=== PATIENT | male | born 1980 | race African-American/Black ===

== ENCOUNTER 2016-12-17 17:18 | Emergency (ER) | payer OTHER ==
[~2016-12-17] VITALS: Ht 182.9 cm; Wt 261.0 kg
[2016-12-17] MEDS ORDERED: DULO30CA PO (17:32)
[2016-12-17] MEDS ORDERED: GABA-283 PO (17:32)
[2016-12-17] MEDS ORDERED: FLON1SPR (20:32)
[2016-12-17] MEDS ORDERED: IBUP-1022 PO (20:32)
[2016-12-17] MEDS ORDERED: ZITHTAB PO (20:32)
[2016-12-17] MEDS ORDERED: PROAAER10 INH (20:36)
[2016-12-17 20:42] VITALS: BP 139/84
--- NOTE | 2016-12-18 08:31 | REP ---
Chest x-ray: Two views. History: Left lower chest pain. Cough. . Comparison study: No comparisons . Findings: The lungs are well inflated and free of infiltrate. The pleural angles are sharp. The heart size is normal. Pulmonary vasculature is not increased. No significant bony abnormality is seen. Impression: Negative chest x-ray. Signed by Nick Wren MD 12/18/2016 08:22 A
== END 2016-12-17 20:46 | disposition home or self-care (01) ==
LOC: M ED 17:18
DX: J21.9 Acute bronchiolitis, unspecified (principal); R05 Cough; M94.0 Chondrocostal junction syndrome [Tietze]; Z79.899 Other long term (current) drug therapy

== ENCOUNTER 2017-07-26 13:04 | Emergency (ER) | payer OTHER ==
[2017-07-26 16:01] LABS: CHLAMYDIA DNA AMPLIFICATION NEGATIVE (NEGATIVE); GC DNA AMPLIFICATION POSITIVE (NEGATIVE)
[2017-07-26] MEDS: AZITHROMYCIN 250 MG TAB PO (16:57)
[2017-07-26] MEDS: cefTRIAXone SOD 250 MG VIAL (J0696) IM (16:57)
[2017-07-26 19:04] LABS: BASO % 0.3 % (0.0-1.0); EOS # 0.1 10^3/uL (0.0-0.50); EOS % 1.6 % (0.0-3.0); HEMATOCRIT 46.1 % (42.0-52.0); HEMOGLOBIN 15.2 g/dl (13.5-17.5); IMMATURE GRANULOCYTE % 0.7 % (0-3.0); LYMPH # 2.3 10^3/uL (1.5-4.5); LYMPH % 32.6 % (24.0-44.0); MEAN CORPUSCULAR HEMOGLOBIN 28.8 pg (27.0-33.0); MEAN CORPUSCULAR VOLUME 87.3 fl (80.0-96.0); MONO # 0.6 10^3/uL (0.0-0.8); MONO % 8.3 % (0.0-5.0); NEUTROPHILS % 56.5 % (36.0-66.0); PLATELET COUNT, AUTOMATED 207 10^3/uL (150-450); RED BLOOD COUNT 5.28 10^6/uL (4.30-6.10); RED CELL DISTRIBUTION WIDTH 12.6 % (11.5-14.5); WHITE BLOOD COUNT 7.1 10^3/uL (4.0-10.0)
[2017-07-26 19:23] LABS: ANION GAP 6 MEQ/L (8-16); BLOOD UREA NITROGEN 13 MG/DL (7-18); CARBON DIOXIDE LEVEL 28 MEQ/L (21-32); CHLORIDE LEVEL 108 MEQ/L (98-107); CK-MB VALUE MASS 2.7 NG/ML (<3.6); CPK CREATINE PHOSPHOKINASE 300 U/L (39-308); CREATININE FOR GFR 1.18 MG/DL (0.70-1.30); GLOMERULAR FILTRATION RATE > 60.0 (>60); GLUCOSE, FASTING 90 MG/DL (70-100); SODIUM LEVEL 142 MEQ/L (136-145); TROPONIN I < 0.02 NG/ML (< 0.10)
== END 2017-07-26 19:55 | disposition home or self-care (01) ==
LOC: M ED 13:04
DX: Z20.2 Contact with and (suspected) exposure to infections with a predominantly sexual mode of transmission (principal); R36.9 Urethral discharge, unspecified; Z79.899 Other long term (current) drug therapy
CPT/HCPCS: J0696

== ENCOUNTER → 2019-12-07 | Outpatient (CLI) | payer OTHER ==
[~2019-12-07] MED LIST: CAPS0.1C2 EX; CYCL-707 PO; D31000TA2 PO; DULO30CA9 PO; FAMO1TAB11 PO; FLON1SPR; GABA-845 PO; IBUP-1022 PO; MULTCAP PO; OMEP-218 PO; PROAAER10 INH; ROSU40TA4 PO; TRAM50TA2 PO; ZITHTAB PO; ZOLO25TA PO; ZOLP10TA2 PO
== END ==
LOC: M LABSMTC 10:37
PROVIDERS: ATTEND Anesthesiology
DX: Z01.812 Encounter for preprocedural laboratory examination (principal); Z20.828 Contact with and (suspected) exposure to other viral communicable diseases
CPT/HCPCS: C9803; U0003

== ENCOUNTER 2019-12-12 08:04 | Day surgery (SDC) | payer OTHER ==
[~2019-12-12] VITALS: Ht 182.9 cm; Wt 116.6 kg
[~2019-12-12 08:04] MED LIST changes: +LIDOCAINE 2% 100MG/5ML SDV (FOR ANES.) As Ordered ONE; -MULTCAP PO; +NS 1,000 ML IV ONE; +propofoL 200 MG/20 ML VIAL As Ordered ONE
[2019-12-12] MEDS ORDERED: MULTCAP PO (08:29)
[2019-12-12] MEDS ORDERED: propofoL 200 MG/20 ML VIAL As Ordered ONE (09:16)
--- NOTE | 2019-12-12 09:31 | ROOR ---
Patient Name: Richmond Garcia Procedure Date: 12/12/2019 8:58 AM Date of : 1980 Age: 39 Room: [facility] Gender: Male Note Status: Finalized Procedure: Colonoscopy Indications: Anal bleeding, Rectal bleeding Providers: Alfred Kruger MD Referring MD: [facility], Admin. Requesting Provider: Medicines: Monitored Anesthesia Care Complications: No immediate complications. Procedure: Pre-Anesthesia Assessment: - Prior to the procedure, a History and Physical was performed, and patient medications and allergies were reviewed. The patient is competent. The risks and benefits of the procedure and the sedation options and risks were discussed with the patient. All questions were answered and informed consent was obtained. Patient identification and proposed procedure were verified by the physician, the nurse and the anesthesiologist in the endoscopy suite. Mental Status Examination: alert and oriented. Airway Examination: normal oropharyngeal airway and neck mobility. Respiratory Examination: clear to auscultation. CV Examination: normal. Prophylactic Antibiotics: The patient does not require prophylactic antibiotics. Prior Anticoagulants: The patient has taken no previous anticoagulant or antiplatelet agents. ASA Grade Assessment: II - A patient with mild systemic disease. After reviewing the risks and benefits, the patient was deemed in satisfactory condition to undergo the procedure. The anesthesia plan was to use monitored anesthesia care (MAC). Immediately prior to administration of medications, the patient was re-assessed for adequacy to receive sedatives. The heart rate, respiratory rate, oxygen saturations, blood pressure, adequacy of pulmonary ventilation, and response to care were monitored throughout the procedure. The physical status of the patient was re-assessed after the procedure. The Colonoscope was introduced through the anus and advanced to the cecum, identified by appendiceal orifice and ileocecal valve. The colonoscopy was performed without difficulty. The patient tolerated the procedure well. The quality of the bowel preparation was good. Findings: The perianal and digital rectal examinations were normal. A diminutive polyp was found in the sigmoid colon. The polyp was flat. The polyp was removed with a cold biopsy forceps. Resection and retrieval were complete. Estimated blood loss was minimal. The retroflexed view of the distal rectum and anal verge was normal and showed no anal or rectal abnormalities. Impression: - One diminutive polyp in the sigmoid colon, removed with a cold biopsy forceps. Resected and retrieved. - The distal rectum and anal verge are normal on retroflexion view. Recommendation: - Discharge patient to home (ambulatory). - Repeat colonoscopy in 10 years for screening purposes. - Telephone my office for pathology results in 1 week. Alfred Kruger MD Alfred Kruger MD 12/12/2019 9:29:52 AM Electronically signed by Alfred Kruger MD Number of Addenda: 0 Note Initiated On: 12/12/2019 8:58 AM Estimated Blood Loss: Estimated blood loss was minimal.
[2019-12-12 09:53] VITALS: BP 105/59
== END 2019-12-12 09:57 | disposition home or self-care (01) ==
LOC: M OPP 08:04
PROVIDERS: ATTEND Surgery
DX: D12.5 Benign neoplasm of sigmoid colon (principal); K62.5 Hemorrhage of anus and rectum; E73.8 Other lactose intolerance; Z79.899 Other long term (current) drug therapy; Z79.891 Long term (current) use of opiate analgesic; Z87.891 Personal history of nicotine dependence

== ENCOUNTER → 2020-03-18 | Outpatient (CLI) | payer OTHER ==
[~2020-03-18] MED LIST changes: -LIDOCAINE 2% 100MG/5ML SDV (FOR ANES.) As Ordered ONE; +MULTCAP PO; -NS 1,000 ML IV ONE; -propofoL 200 MG/20 ML VIAL As Ordered ONE
--- NOTE | 2020-03-18 20:21 | REP ---
INDICATION: LEFT UPPER QUADRANT ABDOMINAL TENDERNESS COMPARISON: None. TECHNIQUE: Frontal view of the chest with multiple views of the right and left hemithorax. FINDINGS: Frontal view of the chest demonstrates no acute cardiopulmonary process, contusion, effusion, or pneumothorax. Multiple views of the right and left hemithorax demonstrates no acute rib fracture/injury or pathology. IMPRESSION: Normal rib series. <Electronically signed by Rudy López > 03/18/20 2017
== END ==
LOC: M RAD 16:03
PROVIDERS: ATTEND Surgery
DX: R10.812 Left upper quadrant abdominal tenderness (principal)

== ENCOUNTER → 2020-03-28 | Outpatient (CLI) | payer OTHER ==
[~2020-03-28] MED LIST changes: +FAMO20TA PO; +VITMTA PO
== END ==
LOC: M LABSMTC 10:57
PROVIDERS: ATTEND Anesthesiology
DX: Z01.812 Encounter for preprocedural laboratory examination (principal); Z20.822 Contact with and (suspected) exposure to COVID-19

== ENCOUNTER → 2020-04-11 | Outpatient (CLI) | payer OTHER | LOC: M LABSMTC 10:58 | PROVIDERS: ATTEND Anesthesiology | DX: Z01.812 Encounter for preprocedural laboratory examination (principal); Z20.822 Contact with and (suspected) exposure to COVID-19 ==

== ENCOUNTER 2020-04-16 12:18 | Day surgery (SDC) | payer OTHER ==
[~2020-04-16] VITALS: Ht 182.9 cm; Wt 118.4 kg
[~2020-04-16 12:18] MED LIST changes: +NS 1,000 ML IV ONE
--- OUTSIDE RECORDS SUMMARY | 2020-04-16 12:22 | CCD ---
Author Author [facility] Address Unknown Phone Unavailable Care Team Providers Care Android Ios Developer Name Role Phone Whitley Baires Unavailable Unavailable Fowler, Whitley Castle Unavailable Unavailable Dequan, Whitley Tin Unavailable Unavailable Fowler, Whitley Tin Unavailable Unavailable Dequan, Whitley Tin Unavailable Unavailable Fowler, Whitley Tin Unavailable Unavailable Fowler, Whitley Tin Unavailable Unavailable Fowler, Whitley Tin Unavailable Unavailable Re-disclosure Warning The records that you are about to access may contain information from federally-assisted alcohol or drug abuse programs. If such information is present, then the following federally mandated warning applies: This information has been disclosed to you from records protected by federal confidentiality rules (42 CFR part 2). The federal rules prohibit you from making any further disclosure of this information unless further disclosure is expressly permitted by the written consent of the person to whom it pertains or as otherwise permitted by 42 CFR part 2. A general authorization for the release of medical or other information is NOT sufficient for this purpose. The Federal rules restrict any use of the information to criminally investigate or prosecute any alcohol or drug abuse patient.The records that you are about to access may contain highly sensitive health information, the redisclosure of which is protected by Article 27-F of the [facility] Public Health law. If you continue you may have access to information: Regarding HIV / AIDS; Provided by facilities licensed or operated by the [facility] Office of Mental Health; or Provided by the [facility] Office for People With Developmental Disabilities. If such information is present, then the following [facility] mandated warning applies: This information has been disclosed to you from confidential records which are protected by state law. State law prohibits you from making any further disclosure of this information without the specific written consent of the person to whom it pertains, or as otherwise permitted by law. Any unauthorized further disclosure in violation of state law may result in a fine or longterm sentence or both. A general authorization for the release of medical or other information is NOT sufficient authorization for further disc losure. Family History Family Member Name Family Member Gender Family Member Status Date o f Status Description Data Source(s) Unknown Female Problem [facility] ([facility] ) Encounters Encounter Providers Location Date Indications Data Source(s ) Office Visit Attender: Tin Jerome 12/28/2019 09:15:00 AM EDT [facility] Outpatient Attender: Tin Jerome 11/26/2019 10:00:00 AM EDT [facility]) Medications Medication Brand Name Start Date Product Form Dose Route Admi nistrative Instructions Pharmacy Instructions Status Indications Reaction Description Data Source(s) 4 mg 04/11/2020 12:00:00 AM EST tablets,dose pack 21 USE DIRECTED USE DIRECTED SOLD: 04/11/2020 [facility] 800 mg 03/31/2020 12:00:00 AM EST tablet 20 TAKE ONE TABLET BY MOUTH EVERY 8 HOURS NEEDED FOR PAIN TAKE ONE TABLET BY MOUTH EVERY 8 HOURS A S NEEDED FOR PAIN SOLD: 03/31/2020 [facility] 0.12 % 03/31/2020 12:00:00 AM EST mouthwash 473 DIP Q-TIP IN RINSE AND APPLY TO SURGICAL SITE TWO TIMES A DAY FOR 2 WEEKS DIP Q-TIP IN RINSE AND APPLY TO SURGICAL SITE TWO TIMES A DAY FOR 2 WEEKS SOLD: 03/31/2020 [facility] 875 mg 12/15/2019 12:00:00 AM EDT tablet 20 TAKE ONE TABLET BY MOUTH EVERY 12 HOURS FOR 10 DAYS TAKE ONE TABLET BY MOUTH EVERY 12 HOURS FOR 10 DAYS SO LD: 12/15/2019 [facility] 800 mg 12/15/2019 12:00:00 AM EDT tablet 21 TAKE ONE TABLET BY MOUTH THREE TIMES A DAY FOR 7 DAYS TAKE ONE TABLET BY MOUTH THREE TIMES A DAY FOR 7 DAYS SOLD: 12/15/2019 [facility] Insurance Providers Payer name Policy type / Coverage type Policy ID Covered constitution party ID Covered constitution party's relationship to be Policy Be Plan Information 'S ADMINISTRATION [id number] SP [id number] [id number] S [id number] [place] [employer] [id number] SP [id number] FOR LIFE [id number] SP [id number] ACTIVE DUTY [id number] SP [id number] [facility] AD O [id number] S [id number] N [employer]AL CLAIMS CHRISTINE -O/P [id number] 18 [id number] [facility] Federal Service Commercial Self Problems, Conditions, and Diagnoses Code Display Name Description Problem Type Effective Dates Data Source(s) [id number] Essential hypertension Essential hypertension Problem 11/26/2019 12:00:00 AM EDT [facility] ([facility], ) Surgeries/Procedures Procedure Description Date Indications Data Source(s) Colonoscopy Flexible Proximal To Splenic Flexure W/Biopsy Si ngle/ 12/12/2019 12:00:00 AM EDT [facility] ([facility], ) Results ID Date Data Source [id number] 04/11/2020 09:30:00 AM EST [facility] Name Value Range Interpretation Code Description Data Ramandeep rce(s) Supporting Document(s) SARS coronavirus 2 RNA Not Detected [facility] [place] This lab was ordered by [facility] and reported by [facility]. ID Date Data Source [id number] 03/28/2020 10:00:00 AM EST [facility] Name Value Range Interpretation Code Description Data Ramandeep rce(s) Supporting Document(s) SARS coronavirus 2 RNA Not Detected [facility] [place] This lab was ordered by [facility] and reported by [facility]. ID Date Data Source [id number] 12/12/2019 09:26:00 AM EDT [facility] ([facility]) Name Value Range Interpretation Code Description Data Ramandeep rce(s) Supporting Document(s) Surgical pathology study Laboratory test result [facility] ([facility]) FINAL DIAGNOSIS Sigmoid colon, polyp, polypectomy: Benign colonic mucosa. No adenomatous change is noted. 12/13/20191207 CLINICAL DIAGNOSIS Rectal bleed 12/12/20191413 GROSS DIAGNOSIS Received in formalin labeled "sigmoid polyp" is a 0.2 x 0.2 x 0.1 cm. portion of mucosa. All in one. - 12/12/20191413 Signed Amber Kim MD 12/13/2019 120 ID Date Data Source [id number] 12/07/2019 11:00:00 AM EDT [facility] Name Value Range Interpretation Code Description Data Ramandeep rce(s) Supporting Document(s) SARS coronavirus 2 RNA [facility] This lab was ordered by [facility] and reported by [facility]. Procedure Vital Signs ID Date Data Source UNK Name Value Range Interpretation Code Description Data Source(s) Body surface area Derived from formula 2.38 m2 2.38 m2 [facility] ([facility]) Body weight 117.936 kg 117.936 kg [facility] ([facility]) [place] body weight 178 [lb_av] 178 [lb_av] [facility] ([facility]) Body mass index (BMI) [Ratio] 35.3 kg/m2 35.3 k g/m2 [facility] ([facility]) Body weight 260.00 [lb_av] 260.00 [lb_av] [facility] ([facility]) Body height 72 [in_i] 72 [in_i] [facility] ([facility]) 6'0" Diastolic blood pressure 87 mm[Hg] 87 mm[Hg] [facility] ([facility]) Systolic blood pressure 134 mm[Hg] 134 mm[Hg] [facility] ([facility]) Body surface area Derived from formula 2.37 m2 2.37 m2 [facility] ([facility]) Body weight 116.745 kg 116.745 kg [facility] ([facility]) [place] body weight 178 [lb_av] 178 [lb_av] [facility] ([facility]) Body mass index (BMI) [Ratio] 34.9 kg/m2 34.9 k g/m2 [facility] ([facility]) Body weight 257.38 [lb_av] 257.38 [lb_av] [facility] ([facility]) Body height 72 [in_i] 72 [in_i] [facility] ([facility]) 6'0" Diastolic blood pressure 62 mm[Hg] 62 mm[Hg] [facility] ([facility]) Systolic blood pressure 120 mm[Hg] 120 mm[Hg] [facility] ([facility]) Body weight 117.029 kg 117.029 kg [facility] ([facility]) [place] body weight 178 [lb_av] 178 [lb_av] [facility] ([facility]) Body mass index (BMI) [Ratio] 35.0 kg/m2 35.0 k g/m2 [facility] ([facility]) Body weight 258.00 [lb_av] 258.00 [lb_av] [facility] ([facility]) Body height 72 [in_i] 72 [in_i] [facility] ([facility]) 6'0" Diastolic blood pressure 80 mm[Hg] 80 mm[Hg] [facility] ([facility]) Systolic blood pressure 122 mm[Hg] 122 mm[Hg] [facility] ([facility])
--- OUTSIDE RECORDS SUMMARY | 2020-04-16 12:22 | CCD | Continuity of Care Document ---
Author Author [facility] AD[facility], Richmond MAYO Organization Unknown Address [address] [address] Phone [phone] Care Team Providers Care Card Punching Machine Operator Name Role Phone Joon Lockhart M.D. AUTM [phone] [facility] AUTM [phone] Problems Active Problems Provider Date Essential hypertension Tin Baires NP Onset: 11/26/2019 Social History Type Date Description Comments Sex Unknown ETOH Use 2-3 A Week Tobacco Use Start: Unknown Denies Smoking state quit 020 Recreational Drug Use Denies Drug Use Allergies, Adverse Reactions, Alerts Description No Known Drug Allergies Medications Active Medications SIG Qnty Indications Ordering Provide r Date Duloxetine HCL 60mg Caps DR Part 90mg by mouth bid Unknown Tramadol HCL 100mg Tablets 1 by mouth bid Unknown Multi Vitamin Tablets 1 po d aily Unknown Immunizations Description No Information Available Vital Signs Date Vital Result Comment 03/18/2020 2:52pm BP Systolic 134 mmHg BP Diastolic 87 mmHg Height 72 inches 6'0" Weight 260.00 lb BMI (Body Mass Index) 35.3 kg/m2 [place] Body Weight 178 lb Weight 117.936 kg BSA (Body Surface Area) 2.38 m2 12/28/2019 9:34am BP Systolic 120 mmHg BP Diastolic 62 mmHg Height 72 inches 6'0" Weight 257.38 lb BMI (Body Mass Index) 34.9 kg/m2 [place] Body Weight 178 lb Weight 116.745 kg BSA (Body Surface Area) 2.37 m2 Results Test Acquired Date Facility Test Result H/L Range Note Laboratory test finding 12/12/2019 [facility] [address] [place] [address] [phone] Pathology Request For Service (SEE NOTE) 1 1 FINAL DIAGNOSIS Sigmoid colon, polyp, polypectomy: Benign colonic mucosa. No adenomatous change is noted. 12/13/20191207 CLINICAL DIAGNOSIS Rectal bleed 12/12/20191413 GROSS DIAGNOSIS Received in formalin labeled "sigmoid polyp" is a 0.2 x 0.2 x 0.1 cm. portion of mucosa. All in one. - 12/12/20191413 Signed Amber Kim MD 12/13/2019 120 Procedures Date Code Description Status 12/12/2019 94163 Colonoscopy Flexible Proximal To Splenic Flexure W/Biopsy Single/ Completed Medical Devices Description No Information Available Encounters Type Date Location Provider Dx Diagnosis Office Visit 12/28/2019 9:15a [facility] Tin lowe NP D12.6 Benign neoplasm of colon, unspecified Z48.89 Encounter for other specifie d surgical aftercare Office Visit 11/26/2019 10:00a [facility] Tin lowe NP K62.5 Hemorrhage of anus and rectum Assessments Date Code Description Provider 12/28/2019 D12.6 Benign neoplasm of colon, unspec ified Tin Baires NP 12/28/2019 Z48.89 Encounter for other specified boudreaux rgical aftercare Tin Baires NP 12/12/2019 K62.5 Hemorrhage of anus and rectum Ed olivia Kruger MD 11/26/2019 K62.5 Hemorrhage of anus and rectum dena Baires NP Plan of Treatment No Information Available Functional Status Description No Information Available Mental Status Description No Information Available Referrals Refer to Reason for Referral Status Appt Date Jeremy Pope D.O. EGD/SCOPE Scheduled 11/26/19 20 [address] [facility] [address] [place], [place] [address] [phone]
[2020-04-16] MEDS ORDERED: LIDOCAINE 2% 100MG/5ML SDV (FOR ANES.) As Ordered ONE (12:49)
[2020-04-16] MEDS ORDERED: propofoL 200 MG/20 ML VIAL As Ordered ONE (12:49)
[2020-04-16] MEDS ORDERED: fentaNYL 100 MCG/2 ML INJECTION (J3010) As Ordered ONE (12:50)
--- NOTE | 2020-04-16 15:00 | ROOR ---
Patient Name: Richmond Garcia Procedure Date: 04/16/2020 2:42 PM Date of : 1980 Age: 39 Room: [facility] Gender: Male Note Status: Finalized Procedure: Upper GI endoscopy Indications: Abdominal pain in the left upper quadrant Providers: Alfred Kruger MD Referring MD: [facility] Sailaja BROOKS [facility], Admin. Requesting Provider: Medicines: Monitored Anesthesia Care Complications: No immediate complications. Procedure: Pre-Anesthesia Assessment: - Prior to the procedure, a History and Physical was performed, and patient medications and allergies were reviewed. The patient is competent. The risks and benefits of the procedure and the sedation options and risks were discussed with the patient. All questions were answered and informed consent was obtained. Patient identification and proposed procedure were verified by the physician, the nurse and the supervisor ornamental ironworking in the endoscopy suite. Mental Status Examination: alert and oriented. Airway Examination: normal oropharyngeal airway and neck mobility. Respiratory Examination: clear to auscultation. CV Examination: normal. Prophylactic Antibiotics: The patient does not require prophylactic antibiotics. Prior Anticoagulants: The patient has taken no previous anticoagulant or antiplatelet agents. ASA Grade Assessment: II - A patient with mild systemic disease. After reviewing the risks and benefits, the patient was deemed in satisfactory condition to undergo the procedure. The anesthesia plan was to use monitored anesthesia care (MAC). Immediately prior to administration of medications, the patient was re-assessed for adequacy to receive sedatives. The heart rate, respiratory rate, oxygen saturations, blood pressure, adequacy of pulmonary ventilation, and response to care were monitored throughout the procedure. The physical status of the patient was re-assessed after the procedure. The Endoscope was introduced through the mouth, and advanced to the third part of duodenum. The upper GI endoscopy was technically difficult and complex due to the patient's discomfort during the procedure. Findings: The examined esophagus was normal. Localized mildly erythematous mucosa without bleeding was found at the incisura. Biopsies were taken with a cold forceps for Helicobacter pylori testing. Estimated blood loss was minimal. The first portion of the duodenum and second portion of the duodenum were normal. Impression: - Normal esophagus. - Erythematous mucosa in the incisura. Biopsied. - Normal first portion of the duodenum and second portion of the duodenum. Recommendation: - Discharge patient to home (ambulatory). - Use Protonix (pantoprazole) 40 mg PO daily for 6 weeks. Procedure Code(s): --- Professional --- 21024, Esophagogastroduodenoscopy, flexible, transoral; with biopsy, single or multiple Diagnosis Code(s): --- Professional --- K31.89, Other diseases of stomach and duodenum R10.12, Left upper quadrant pain CPT copyright 2019 [employer]. All rights reserved. The codes documented in this report are preliminary and upon impregnating helper review may be revised to meet current compliance requirements. Alfred Kruger MD Alfred Kruger MD 04/16/2020 3:00:05 PM Electronically signed by Alfred Kruger MD Number of Addenda: 0 Note Initiated On: 04/16/2020 2:42 PM Estimated Blood Loss: Estimated blood loss was minimal.
[2020-04-16 15:27] VITALS: BP 147/89
== END 2020-04-16 15:30 | disposition home or self-care (01) ==
LOC: M OPP 12:18
PROVIDERS: ATTEND Surgery
DX: R10.12 Left upper quadrant pain (principal); K29.50 Unspecified chronic gastritis without bleeding; K31.89 Other diseases of stomach and duodenum; E78.5 Hyperlipidemia, unspecified; R73.03 Prediabetes; R12 Heartburn; J45.909 Unspecified asthma, uncomplicated; G47.30 Sleep apnea, unspecified; Z91.011 Allergy to milk products; Z79.899 Other long term (current) drug therapy
CPT/HCPCS: 43239; 88305; J3010

== ENCOUNTER → 2020-10-09 | Outpatient (REF) | payer OTHER ==
[~2020-10-09] MED LIST changes: +GABA-283 PO; -GABA-845 PO; -NS 1,000 ML IV ONE
[2020-10-09 09:37] LABS: SEMEN APPEARANCE OPAQUE (OPAQUE)
[2020-10-09 09:38] LABS: SEMEN VISCOSITY LIQUID (LIQUID); SEMEN pH 8.5 (7.0-8.0); SPERM CONCENTRATION 74.1 M/ml (>=15.0); WBC CONCENTRATION <=1 M/ml (<=1 M/ml)
== END ==
LOC: M LAB REF 09:21
PROVIDERS: ATTEND Obstetrics & Gynecology
DX: N46.8 Other male infertility (principal)

== ENCOUNTER → 2020-11-07 | Outpatient (REF) | payer OTHER ==
[2020-11-07 10:30] LABS: SEMEN APPEARANCE OPAQUE (OPAQUE); SEMEN VISCOSITY VISCOUS (LIQUID); SEMEN VOLUME 1.4 ml (2.0-5.0); SPERM CONCENTRATION 36.4 M/ml (>=15.0); WBC CONCENTRATION >1 M/ml (<=1 M/ml)
== END ==
LOC: M LAB REF 10:09
PROVIDERS: ATTEND Obstetrics & Gynecology
DX: N46.8 Other male infertility (principal)

== ENCOUNTER 2021-08-04 08:11 | Emergency (ER) | payer OTHER ==
[~2021-08-04] VITALS: Ht 182.9 cm; Wt 126.9 kg
[~2021-08-04 08:11] MED LIST changes: -D31000TA2 PO; +OMEP-173 PO; -OMEP-218 PO; +VITA100093 PO
[2021-08-04] MEDS ORDERED: CYCL-707 PO (08:23)
[2021-08-04] MEDS ORDERED: KETOROLAC 30 MG/ML 1ML VIAL IM ONE (09:40)
[2021-08-04] MEDS ORDERED: LIDOCAINE 5% (LIDODERM) PATCH TD ONE (09:40)
[2021-08-04] MEDS ORDERED: methocarbamoL 500 MG TAB PO ONE (09:40)
[2021-08-04] MEDS ORDERED: METH-1164 PO (11:01)
[2021-08-04 11:11] VITALS: BP 108/53
[2021-08-04] MEDS ORDERED: **NOTE PATIENT COMMENT** MISC XX ONE (22:00)
== END 2021-08-04 11:26 | disposition home or self-care (01) ==
LOC: M ED 08:11
DX: M54.40 Lumbago with sciatica, unspecified side (principal); M51.26 Other intervertebral disc displacement, lumbar region; M51.27 Other intervertebral disc displacement, lumbosacral region; I10 Essential (primary) hypertension; J45.909 Unspecified asthma, uncomplicated; E78.5 Hyperlipidemia, unspecified; Z79.899 Other long term (current) drug therapy; E73.9 Lactose intolerance, unspecified
CPT/HCPCS: 72131; 96372; 99283; J1885